=== PATIENT | female | born 1965 | race Caucasian/White ===

== ENCOUNTER 2016-12-29 18:43 | Emergency (ER) | payer SELFPAY ==
[~2016-12-29] VITALS: Ht 170.2 cm; Wt 73.0 kg
[~2016-12-29 18:43] MED LIST: METH750T2 PO; VICOTAB4 PO; Z.0.NO CURRENT MEDS
[2016-12-29 18:44] VITALS: BP 188/90; PULSE 99; O2SAT 98
--- NOTE | 2016-12-29 20:20 | PD ---
Physical Exam Date Seen by Provider: Dec 29, 2016 Time Seen by Provider: 20:16 Narrative 51 y/o female presents with Cough, SOB and Left Flank pain. Reports several week Hx difficulty swallowing food. Patient states food feels like it is getting stuck. Hurts when she Eats. Patient states Purulent Thick Sputum with cough. Long Smoking Hx. Has had Epigastic Pain and Burning with Nausea, but no vomiting. Denies Fever or Chills. Vital signs reviewed. Patient stable. Awaiting Bed placement. Data Data Last Documented VS Vital Signs Date Time Temp Pulse Resp B/P Pulse Ox O2 Delivery O2 Flow Rate FiO2 12/29/16 18:44 99 188/90 98 MDM Medical Record Reviewed: Yes Supervised Visit with JOVITA: Yes Condition: Stable Tommy Manning Dec 29, 2016 20:20
[2016-12-29] MEDS ORDERED: KETOROLAC TROMETHAMINE 30 MG/ML (IVP) VIAL IVP ONE (21:45)
[2016-12-29] MEDS ORDERED: SODIUM CHLOR 0.9% 1000 ML INJ 1,000 ML IV ONE (21:45)
[2016-12-29] MEDS ORDERED: ONDANSETRON HCL 4 MG/2 ML VIAL IV ONE (21:45)
--- NOTE | 2016-12-29 22:23 | RADRPT ---
EXAM DATE/TIME: 12/29/2016 21:55 [facility] COMPARISON: No previous studies available for comparison. INDICATIONS : Cough MEDICAL HISTORY : None. SURGICAL HISTORY : None. ENCOUNTER: Initial ACUITY: 3 days PAIN SCORE: 0/10 LOCATION: chest FINDINGS: A single view of the chest demonstrates the lungs to be symmetrically aerated without evidence of mas s, infiltrate or effusion. The cardiomediastinal contours are unremarkable. Osseous structures are intact. CONCLUSION: No acute disease. Ricardo Lawrence MD on December 29, 2016 at 22:21 Board Certified Radiologist. This report was verified electronically.
[2016-12-29 22:32] LABS: BLOOD, URINE MOD (NEG); GLUCOSE,URINE NEG (NEG); KETONE, URINE NEG (NEG); NITRITE,URINE NEG (NEG); PH, URINE 7.5 (5.0-8.5); SQUAMOUS EPITHELIAL CELL URINE 1 /hpf (0-5); URINE COLOR YELLOW (YELLW/STRAW)
[2016-12-29 22:34] LABS: AUTOMATED NEUTROPHIL # 6.6 TH/MM3 (1.8-7.7); BASOPHIL # 0.1 TH/MM3 (0-0.2); BASOPHIL % 0.8 % (0.0-2.0); EOSINOPHIL % 0.5 % (0.0-4.0); HEMATOCRIT 39.3 % (35.0-46.0); HEMO FLAGS DIFF FINAL; LYMPH % 15.5 % (9.0-44.0); LYMPHOCYTE # 1.3 TH/MM3 (1.0-4.8); MEAN CELL VOLUME 94.3 FL (80.0-100.0); MEAN CORPUSCULAR HEMOGLOBIN 31.8 PG (27.0-34.0); MEAN CORPUSCULAR HGB CONC 33.7 % (32.0-36.0); MONO % 7.7 % (0.0-8.0); NEUT % 75.5 % (16.0-70.0); PLATELET COUNT 365 TH/MM3 (150-450); RED BLOOD COUNT 4.17 MIL/MM3 (4.00-5.30); RED CELL DISTRIBUTION WIDTH 13.8 % (11.6-17.2); WHITE BLOOD COUNT 8.7 TH/MM3 (4.0-11.0)
[2016-12-29 22:35] LABS: COMMENT (UR) CULT NOT INDICATED; CULTURE IF INDICATED CULT NOT INDICATED
[2016-12-29 22:40] LABS: ALT (GPT) 58 U/L (10-53); ANION GAP 7 MEQ/L (5-15); AST (GOT) 51 U/L (15-37); BICARBONATE 29.5 MEQ/L (21.0-32.0); BLOOD UREA NITROGEN 13 MG/DL (7-18); CHLORIDE 96 MEQ/L (98-107); GLOMERULAR FILTRATION RATE 81 ML/MIN (>89); POTASSIUM 3.6 MEQ/L (3.5-5.1); SODIUM (NA) 132 MEQ/L (136-145)
[2016-12-29 22:43] LABS: ALKALINE PHOSPHATASE 98 U/L (45-117); TOTAL BILIRUBIN ADULT 0.4 MG/DL (0.2-1.0)
[2016-12-29] MEDS ORDERED: NAPR500 PO (23:33)
--- NOTE | 2016-12-29 23:33 | PD ---
HPI Chief Complaint: Respiratory Symptoms Time Seen by Provider: 21:24 Travel History International Travel<30 days: No Contact w/Intl Traveler<30days: No Traveled to known affect area: No History of Present Illness HPI The 51 year-old woman who presents to the emergency department multiple complaints. Was a left flank pain, headaches, sweats, cough, all starting over the past day or so. Her main complaint is that she may have a urinary tract infection with a left flank pain. Just a little bit a cough. She's not had any urinary symptoms of that she says she is not taking as much is normal. She also quite some chills and hot flashes. History Past Medical History Narrative Medical Seizures Social History Alcohol Use: Yes (OCCASIONAL) Tobacco Use: Yes (CIGARETTES, 1 PPD X 33 YEARS) Allergies-Medications (Allergen,Severity, Reaction): Coded Allergies: No Known Allergies (Verified , 12/29/16) Reported Meds & Prescriptions Reported Meds & Active Scripts Active No Active Prescriptions or Reported Medications Review of Systems Except as stated in HPI: all other systems reviewed are Neg Physical Exam Narrative GENERAL: 51 year-old woman, no acute distress. SKIN: Focused skin assessment warm/dry. HEAD: Atraumatic. Normocephalic. EYES: Pupils equal and round. No scleral icterus. No injection or drainage. ENT: No nasal bleeding or discharge. Mucous membranes pink and moist. NECK: Trachea midline. No JVD. CARDIOVASCULAR: Regular rate and rhythm. No murmur appreciated. RESPIRATORY: No accessory muscle use. Clear to auscultation. Breath sounds equal bilaterally. GASTROINTESTINAL: Abdomen soft, non-tender, nondistended. Hepatic and splenic margins not palpable. MUSCULOSKELETAL: No obvious deformities. No clubbing. No cyanosis. No edema. NEUROLOGICAL: Awake and alert. No obvious cranial nerve deficits. Motor grossly within normal limits. Normal speech. PSYCHIATRIC: Appropriate mood and affect; insight and judgment normal. Data Data Last Documented VS Vital Signs Date Time Temp Pulse Resp B/P Pulse Ox O2 Delivery O2 Flow Rate FiO2 12/29/16 18:44 99 188/90 98 Orders Complete Blood Count With Diff (12/29/16 21:44) Comprehensive Metabolic Panel (12/29/16 21:44) Urinalysis - C+S If Indicated (12/29/16 21:44) Chest, Single Ap (12/29/16 ) Iv Access Insert/Monitor (12/29/16 21:44) Sodium Chlor 0.9% 1000 Ml Inj (Ns 1000 M (12/29/16 21:45) Ondansetron Inj (Zofran Inj) (12/29/16 21:45) Ketorolac Inj (Toradol Inj) (12/29/16 21:45) Labs Laboratory Tests Test 12/29/16 22:00 White Blood Count 8.7 TH/MM3 Red Blood Count 4.17 MIL/MM3 Hemoglobin 13.3 GM/DL Hematocrit 39.3 % Mean Corpuscular Volume 94.3 FL Mean Corpuscular Hemoglobin 31.8 PG Mean Corpuscular Hemoglobin 33.7 % Concent Red Cell Distribution Width 13.8 % Platelet Count 365 TH/MM3 Mean Platelet Volume 6.8 FL Neutrophils (%) (Auto) 75.5 % Lymphocytes (%) (Auto) 15.5 % Monocytes (%) (Auto) 7.7 % Eosinophils (%) (Auto) 0.5 % Basophils (%) (Auto) 0.8 % Neutrophils # (Auto) 6.6 TH/MM3 Lymphocytes # (Auto) 1.3 TH/MM3 Monocytes # (Auto) 0.7 TH/MM3 Eosinophils # (Auto) 0.0 TH/MM3 Basophils # (Auto) 0.1 TH/MM3 CBC Comment DIFF FINAL Differential Comment Urine Color YELLOW Urine Turbidity CLEAR Urine pH 7.5 Urine Specific [place] 1.008 Urine Protein NEG mg/dL Urine Glucose (UA) NEG mg/dL Urine Ketones NEG mg/dL Urine Occult Blood MOD Urine Nitrite NEG Urine Bilirubin NEG Urine Urobilinogen LESS THAN 2.0 MG/DL Urine Leukocyte Esterase NEG Urine RBC 1 /hpf Urine WBC LESS THAN 1 /hpf Urine Squamous Epithelial 1 /hpf Cells Microscopic Urinalysis Comment CULT NOT INDICATED Sodium Level 132 MEQ/L Potassium Level 3.6 MEQ/L Chloride Level 96 MEQ/L Carbon Dioxide Level 29.5 MEQ/L Anion Gap 7 MEQ/L Blood Urea Nitrogen 13 MG/DL Creatinine 0.76 MG/DL Estimat Glomerular Filtration 81 ML/MIN Rate Random Glucose 120 MG/DL Calcium Level 8.7 MG/DL Total Bilirubin 0.4 MG/DL Aspartate Amino Transf 51 U/L (AST/SGOT) Alanine Aminotransferase 58 U/L (ALT/SGPT) Alkaline Phosphatase 98 U/L Total Protein 7.3 GM/DL Albumin 3.9 GM/DL [facility] Medical Decision Making Medical Screen Exam Complete: Yes Emergency Medical Condition: Yes Interpretation(s) LABS: CBC unremarkable. CMP remarkable for mildly elevated AST and ALT. UA negative chest x-ray negative Differential Diagnosis UTI, weakness, kidney stone, other Narrative Course Medical decision-making 51 year-old woman who presents emergent department, multiple complaints, little bit bizarre. She looks overall well. I'm not sure what the etiology of her symptoms are. Flank pain could be a kidney stone, but I don't think so. There is no blood on her microscopic UA. Recommend supportive treatment. Diagnosis Primary Impression: Flank pain Additional Instructions: Take Naprosyn as prescribed. Albeit primary doctor next 2-4 days. Return to the emergency department for any new or worsening symptoms. Med/Other Pt SpecificInfo: Prescription(s) given Scripts Naproxen (Naprosyn)500 Mg Egk661 Mg PO BID #60 TAB Ref 0 Prov:Surendra Tai MD 12/29/16 Disposition: 01 DISCHARGE HOME Condition: Stable Surenrda Tai MD Dec 29, 2016 23:33
== END 2016-12-29 23:49 | disposition home or self-care (01) ==
LOC: NEPD 18:43
DX: R10.32 Left lower quadrant pain (principal); F10.10 Alcohol abuse, uncomplicated; F17.210 Nicotine dependence, cigarettes, uncomplicated
CPT/HCPCS: 71010; 80053; 81001; 85025; 96361; 96374; 96375; 99284; J1885; J2405; J7030